=== PATIENT | female | born 1975 | race Caucasian/White ===

== ENCOUNTER 2016-06-04 17:42 | Emergency (ER) | payer OTHER ==
[~2016-06-04] VITALS: Ht 160 cm; Wt 101.2 kg
[~2016-06-04 17:42] MED LIST: ADVIL200 M1 PO; ALAVERT10 M1 PO; AMOXIL500 MG PO; CEFADROXIL500 M1 PO; CEPHALEXIN500 M1 PO; CIPRO500 MG PO; FERROUS SULFAT324 M2 PO; FLAX OIL1000 M1 PO; HYDROCODONE BIT1 T11 PO; LOMOTIL 0.025 M1 TA1 PO; LOVASTATIN20 MG PO; NKHM; OLIVE LEAF EXT250 MG PO; PHENERGAN25 M1 PO; PRINZIDE 12.5 M1 TAB PO; TENORMIN25 MG PO; TRAMADOL HCL50 MG PO; VICODIN ES 7501 TA1 PO
[2016-06-04] MEDS ORDERED: AUGMENTIN 875-875 MG PO (18:25)
[2016-06-07] MEDS ORDERED: NORCO 5-325 TA1 EACH PO (11:20)
[2016-06-21] MEDS ORDERED: ACETAMINOPHEN-O1 TAB PO (01:25)
[2016-06-21] MEDS ORDERED: MIRALAX POWDER255 GM PO (03:41)
[2016-06-21] MEDS ORDERED: CEFUROXIME AXE250 MG PO (03:41)
[2016-06-21] MEDS ORDERED: CYCLOBENZAPRINE5 M3 PO (03:42)
[2016-06-28] MEDS ORDERED: MACROBID100 M1 PO (15:15)
[2016-06-28] MEDS ORDERED: DIFLUCAN150 MG PO (15:24)
== END 2016-06-04 18:37 | disposition home or self-care (01) ==
LOC: ED 17:42
DX: H65.113 Acute and subacute allergic otitis media (mucoid) (sanguinous) (serous), bilateral (principal); Z91.040 Latex allergy status

== ENCOUNTER → 2016-10-19 | Outpatient (CLI) | payer OTHER ==
[~2016-10-19] MED LIST changes: +ACETAMINOPHEN-O1 TAB PO; +AUGMENTIN 875-875 MG PO; +CEFUROXIME AXE250 MG PO; +CYCLOBENZAPRINE5 M3 PO; +DIFLUCAN150 MG PO; +MACROBID100 M1 PO; +MIRALAX POWDER255 GM PO; +NORCO 5-325 TA1 EACH PO
[2016-10-20 07:07] LABS: FOLLICLE STIMULATING HORMONE 36.9 mIU/mL (.)
[2016-10-20 12:09] LABS: LYME AB/TOTAL IMMUNOGLOBULINS <0.91 ISR (0.00-0.90)
== END | disposition home or self-care (01) ==
LOC: RESCLI 03:21 → LAB 03:21 → RESCLI 12:56
PROVIDERS: Internal Medicine
DX: Z11.2 Encounter for screening for other bacterial diseases (principal); N94.6 Dysmenorrhea, unspecified; W57.XXXS Bitten or stung by nonvenomous insect and other nonvenomous arthropods, sequela

== ENCOUNTER → 2016-11-03 | Outpatient (CLI) | payer OTHER ==
[~2016-11-03] MED LIST changes: +CLINDAMYCIN HC300 MG PO; +OMEPRAZOLE40 MG PO
[2016-11-04 13:04] LABS: LYME AB/TOTAL IMMUNOGLOBULINS <0.91 ISR (0.00-0.90)
== END | disposition home or self-care (01) ==
LOC: LAB 10:00
PROVIDERS: Internal Medicine
DX: Z11.2 Encounter for screening for other bacterial diseases (principal); Z01.84 Encounter for antibody response examination; W57.XXXA Bitten or stung by nonvenomous insect and other nonvenomous arthropods, initial encounter

== ENCOUNTER 2016-11-04 14:06 | Emergency (ER) | payer OTHER ==
[~2016-11-04] VITALS: Wt 98.0 kg
[~2016-11-04 14:06] MED LIST changes: -CLINDAMYCIN HC300 MG PO; -OMEPRAZOLE40 MG PO
[2016-11-04] MEDS ORDERED: OMEPRAZOLE40 MG PO (14:15)
[2016-11-04] MEDS ORDERED: CLINDAMYCIN HC300 MG PO (14:15)
== END 2016-11-04 15:25 | disposition home or self-care (01) ==
LOC: ED 14:06
DX: S91.221A Laceration with foreign body of right great toe with damage to nail, initial encounter (principal); Z98.890 Other specified postprocedural states; Z98.51 Tubal ligation status; Z79.899 Other long term (current) drug therapy; W22.8XXA Striking against or struck by other objects, initial encounter; Y93.89 Activity, other specified; Y92.89 Other specified places as the place of occurrence of the external cause; Y99.9 Unspecified external cause status

== ENCOUNTER → 2018-09-22 | Outpatient (CLI) | payer SELFPAY ==
[~2018-09-22] MED LIST changes: +CLINDAMYCIN HC300 MG PO; +OMEPRAZOLE40 MG PO
[2018-09-22 11:03] LABS: BASO % 0.6 % (0.0-1.0); EOS # 0.1 10*3/uL (0.0-0.4); EOS % 1.7 % (1.0-4.0); HEMOGLOBIN 14.1 g/dl (12.0-16.0); LYMPH # 1.5 10*3/uL (1.3-4.4); LYMPH % 20.8 % (27.0-41.0); MEAN CELL VOLUME 85.8 fl (81.0-99.0); MEAN CORPUSCULAR HGB 28.1 pg (27.0-31.0); MEAN CORPUSCULAR HGB CONC 32.8 g/dl (33.0-37.0); MEAN PLATELET VOLUME 8.5 fl (9.6-12.3); MONO # 0.5 10*3/uL (0.1-1.0); MONO % 6.6 % (3.0-9.0); NEUT # 4.9 10*3/uL (2.3-7.9); PLATELET COUNT AUTOMATED 281 10*3/uL (130-400); RED BLOOD COUNT 5.01 10*6/uL (4.10-5.10); RED CELL DISTRI WIDTH 13.5 % (0-14.5)
[2018-09-22 11:39] LABS: ALBUMIN 3.8 gm/dl (3.1-4.5); ALKALINE PHOSPHATASE 125 U/L (45-117); BUN 12 mg/dl (7-24); CHLORIDE 105 mmol/L (98-107); CHOLESTEROL 219 mg/dL (<200); CREATININE 0.98 mg/dL (0.55-1.02); HDL CHOLESTEROL 53 mg/dl (40-60); LDL CHOLESTEROL 130 mg/dL (9-159); POTASSIUM 3.6 mmol/L (3.5-5.1); SGOT/AST 20 IU/L (3-35); SGPT/ALT 41 U/L (12-78); SODIUM 141 mmol/L (136-145); TOTAL PROTEIN 7.5 gm/dL (6.4-8.2); TRIGLYCERIDES 182 mg/dl (<150); VLDL CHOLESTEROL 36 mg/dL (6-40)
== END | disposition home or self-care (01) ==
LOC: LAB 10:50
PROVIDERS: Student in an Organized Health Care Education/Training Program
DX: Z79.899 Other long term (current) drug therapy (principal)

== ENCOUNTER → 2019-11-22 | Outpatient (CLI) | payer OTHER | END | disposition home or self-care (01) | LOC: MAMMO 11-15 10:30 | DX: Z12.31 Encounter for screening mammogram for malignant neoplasm of breast (principal) ==

== ENCOUNTER → 2019-12-10 | Outpatient (CLI) | payer OTHER | END | disposition home or self-care (01) | LOC: RESCLI 03:22 | DX: I10 Essential (primary) hypertension (principal); J30.2 Other seasonal allergic rhinitis; N93.9 Abnormal uterine and vaginal bleeding, unspecified; G43.109 Migraine with aura, not intractable, without status migrainosus; E55.9 Vitamin D deficiency, unspecified; E78.5 Hyperlipidemia, unspecified ==

== ENCOUNTER → 2020-03-20 | Outpatient (CLI) | payer OTHER | END | disposition home or self-care (01) | LOC: RESCLI 00:51 | PROVIDERS: ATTEND Internal Medicine | DX: E55.9 Vitamin D deficiency, unspecified (principal); E78.5 Hyperlipidemia, unspecified; G43.109 Migraine with aura, not intractable, without status migrainosus; J30.2 Other seasonal allergic rhinitis; I10 Essential (primary) hypertension; N93.9 Abnormal uterine and vaginal bleeding, unspecified; Z79.899 Other long term (current) drug therapy; Z98.890 Other specified postprocedural states; Z88.8 Allergy status to other drugs, medicaments and biological substances ==

== ENCOUNTER → 2020-03-21 | Outpatient (CLI) | payer OTHER ==
[2020-03-21 10:48] LABS: CHOLESTEROL 179 mg/dL (<200); HDL CHOLESTEROL 44 mg/dl (40-60); LDL CHOLESTEROL 94 mg/dL (9-159); TRIGLYCERIDES 205 mg/dl (<150); VLDL CHOLESTEROL 41 mg/dL (6-40)
== END | disposition home or self-care (01) ==
LOC: LAB 09:32
PROVIDERS: Internal Medicine; ATTEND Emergency Medicine
DX: E78.5 Hyperlipidemia, unspecified (principal); E55.9 Vitamin D deficiency, unspecified

== ENCOUNTER → 2020-09-09 | Outpatient (CLI) | payer OTHER | END | disposition home or self-care (01) | LOC: RESCLI 00:23 | PROVIDERS: ATTEND Internal Medicine | DX: N93.9 Abnormal uterine and vaginal bleeding, unspecified (principal); G43.109 Migraine with aura, not intractable, without status migrainosus; J30.2 Other seasonal allergic rhinitis; I10 Essential (primary) hypertension; Z79.899 Other long term (current) drug therapy; Z98.890 Other specified postprocedural states; Z98.51 Tubal ligation status ==

== ENCOUNTER 2021-11-11 22:37 | Emergency (ER) | payer OTHER ==
[2021-11-11 23:19] LABS: BILIRUBIN Negative (Negative); BLOOD 2+ (Negative); CLARITY Clear (Clear); COLOR Dark Yellow (Yellow); GLUCOSE Negative (Negative); KETONE Negative (Negative); LEUKO ESTERASE 3+ (Negative); NITRITE Positive (Negative); PH 6.5 (4.5-8.0); SPECIFIC GRAVITY <= 1.005 (1.001-1.030)
[2021-11-11 23:24] LABS: BACTERIA 2+; WBC 41-50 wbc/hpf (0-5)
[2021-11-11] MEDS ORDERED: PYRIDIUM200 M1 PO (23:36)
[2021-11-11] MEDS ORDERED: CIPRO500 MG PO (23:36)
== END 2021-11-11 23:47 | disposition home or self-care (01) ==
LOC: ED 22:37
PROVIDERS: Emergency Medicine
DX: N39.0 Urinary tract infection, site not specified (principal)

== ENCOUNTER 2022-04-26 20:42 | Emergency (ER) | payer OTHER ==
[~2022-04-26] VITALS: Ht 160 cm; Wt 92.1 kg
[~2022-04-26 20:42] MED LIST changes: +PYRIDIUM200 M1 PO
[2022-04-26] MEDS ORDERED: PROVENTIL HFA6.7 GM INH (22:58)
[2022-04-26] MEDS ORDERED: BENZONATATE150 MG PO (22:58)
[2022-04-26] MEDS ORDERED: AMOXICILLIN500 M2 PO (22:58)
== END 2022-04-26 23:08 | disposition home or self-care (01) ==
LOC: ED 20:42
DX: H66.91 Otitis media, unspecified, right ear (principal); J20.9 Acute bronchitis, unspecified; Z79.899 Other long term (current) drug therapy; Z98.890 Other specified postprocedural states; Z98.51 Tubal ligation status

== ENCOUNTER → 2022-07-16 | Outpatient (CLI) | payer OTHER ==
[~2022-07-16] MED LIST changes: +AMOXICILLIN500 M2 PO; +BENZONATATE150 MG PO; +PROVENTIL HFA6.7 GM INH
[2022-07-16 09:31] LABS: BASO % 0.5 % (0.0-1.0); EOS # 0.1 10*3/uL (0.0-0.4); EOS % 1.6 % (1.0-4.0); HEMATOCRIT 41.5 % (37.0-47.0); LYMPH # 1.5 10*3/uL (1.3-4.4); LYMPH % 24.6 % (27.0-41.0); MEAN CELL VOLUME 85.2 fl (81.0-99.0); MEAN CORPUSCULAR HGB 28.3 pg (27.0-31.0); MEAN CORPUSCULAR HGB CONC 33.3 g/dl (33.0-37.0); MEAN PLATELET VOLUME 8.7 fl (9.6-12.3); MONO # 0.4 10*3/uL (0.1-1.0); MONO % 6.8 % (3.0-9.0); NEUT # 4.1 10*3/uL (2.3-7.9); NEUT % 66.3 % (47.0-73.0); PLATELET COUNT AUTOMATED 257 10*3/uL (130-400); RED BLOOD COUNT 4.87 10*6/uL (4.10-5.10); WHITE BLOOD COUNT 6.1 10*3/uL (4.8-10.8)
[2022-07-16 10:23] LABS: ALKALINE PHOSPHATASE 84 U/L (46-116); BUN 13 mg/dl (9-23); CHLORIDE 105 mmol/L (98-107); CHOLESTEROL 176 mg/dL (<200); LDL CHOLESTEROL 95 mg/dL (9-159); POTASSIUM 4.3 mmol/L (3.4-5.1); SGPT/ALT 18 U/L (10-49); THYROID STIM HORMONE (HS) 1.549 uIU/ml (0.550-4.780); THYROXINE (T4) TOTAL 8.6 ug/dl (4.5-10.9); TOTAL PROTEIN 6.8 gm/dL (6.0-8.0); TRIGLYCERIDES 182 mg/dl (<150)
== END | disposition home or self-care (01) ==
LOC: LAB 09:11
PROVIDERS: ATTEND Family Medicine
DX: I10 Essential (primary) hypertension (principal)

== ENCOUNTER → 2025-01-25 | Outpatient (CLI) | payer OTHER ==
[~2025-01-25] MED LIST changes: +SEPTDS PO
== END ==
LOC: RAD 09:24
PROVIDERS: ATTEND Family Medicine
DX: S40.912A Unspecified superficial injury of left shoulder, initial encounter (principal); Z04.2 Encounter for examination and observation following work accident; X58.XXXA Exposure to other specified factors, initial encounter; Y93.89 Activity, other specified; Y92.89 Other specified places as the place of occurrence of the external cause; Y99.8 Other external cause status

== ENCOUNTER → 2025-02-28 | Outpatient (CLI) | payer OTHER | END | disposition home or self-care (01) | LOC: MRI 07:46 | PROVIDERS: ATTEND Family Medicine | DX: S43.402A Unspecified sprain of left shoulder joint, initial encounter (principal); S43.432A Superior glenoid labrum lesion of left shoulder, initial encounter; M77.8 Other enthesopathies, not elsewhere classified; M25.812 Other specified joint disorders, left shoulder; X58.XXXA Exposure to other specified factors, initial encounter; Y93.89 Activity, other specified; Y92.89 Other specified places as the place of occurrence of the external cause; Y99.8 Other external cause status ==